=== PATIENT | female | born 1970 | race Caucasian/White ===

== ENCOUNTER 2017-08-08 09:30 | Emergency (ER) | payer BC ==
--- NOTE | 2017-08-08 09:45 | ERNOTE ---
Medical Problem HPI - General Chief Complaint: General Assessment Time Seen by Provider: 08/08/17 09:43 Source: patient, RN notes reviewed Exam Limitations: no limitations - Immun/Allergies/Home Medications Immunizations: IMMUNIZATION HX History of Influenza Vaccine Yes Allergies/Adverse Reactions: Allergies No Known Allergies Allergy (Unverified 08/08/17 09:41) Home Medications: HOME MEDICATIONS Cyanocobalamin (Vitamin B-12) [Vitamin B-12] 500 mcg PO DAILY 08/08/17 [Last Taken Unknown] Ergocalciferol (Vitamin D2) [Vitamin D2] 50,000 unit PO FR 08/08/17 [Last Taken Unknown] Escitalopram Oxalate [Lexapro] 10 mg PO DAILY 08/08/17 [Last Taken Unknown] Levothyroxine Sodium [Synthroid] 112 mcg PO DAILY 08/08/17 [Last Taken Unknown] Topiramate [Topiramate ER] 100 mg PO DAILY 08/08/17 [Last Taken Unknown] - History of Present History Narrative: Patient on Augmentin a couple of weeks ago, finished earlier this week. Started having diarrhea the day after she finished the Augmentin. She took one dose of Imodium, which worked but she did not repeat that medication and the diarrhea came back. Timing: intermittent Modifying Factors - (Improves): Present: medication Review of Systems - Review of Systems Constitutional: Present: recent illness. Absent: fever, chills, fatigue, malaise EYE: Present: no symptoms reported ENT: Absent: ear pain, sore throat Respiratory: Absent: shortness of breath, cough Cardiology: Absent: chest pain Gastrointestinal/Abdominal: Present: diarrhea. Absent: nausea, vomiting, abdominal pain Genitourinary: Absent: frequency, pain, dysuria Musculoskeletal: Absent: back pain, muscle pain Skin: Present: no symptoms reported Neurological: Present: no symptoms reported Endocrine: Present: no symptoms reported Hematologic/Lymphatic: Present: no symptoms reported Psych: Present: no symptoms reported - Patient's Past Medical History Patient History - Medical: Hypothyroidism Patient History - Cancer: No Hx of Cancer Patient History - Surgical Procedures: Cholecystectomy, , T & A Patient History - Other: None - Social History Living Situations: home Psych History: Psychiatric Hx Alcohol Use: none Drug Use: none - Immunizations History of Influenza Vaccine: Yes Physical Exam - Physical Exam General Appearance: Present: wd/wn, alert, no apparent distress Head Exam: Present: normal inspection, no evidence of injury Eye Exam: Normal inspection: bilateral, PERRL: bilateral, EOMI: bilateral Ears, Nose, Throat: Present: normal ENT inspection Neck: Present: normal inspection, nontender Respiratory: Present: no respiratory distress, normal breath sounds, no accessory muscle use, chest nontender, lungs clear Cardiovascular/Chest: Present: regular rate, rhythm, no murmur, normal peripheral pulses Gastrointestinal/Abdominal: Present: normal bowel sounds, nondistended, soft, tenderness - very mild left mid abdomen Back Exam: Present: normal inspection, normal range of motion Extremity Exam: Present: normal inspection, non-tender, normal range of motion, no edema Neurological Exam: Present: alert, oriented, normal mood/affect, no motor/ sensory deficits Skin Exam: Present: normal color, warm/dry Lymphatic Exam: Present: no adenopathy ED Progress - Results and Orders Patient's Lab Results:: I have reviewed the patient's lab results. Results and Orders: Laboratory Tests 08/08/17 08/08/17 08/08/17 09:54 09:54 10:00 WBC 7.3 RBC 5.00 Hgb 14.2 Hct 41.6 MCV 83.2 MCH 28.4 MCHC 34.1 RDW 13.0 Plt Count 251 MPV 8.8 Immature Gran % (Auto) 0.30 Immature Gran # (Auto) 0.02 Neutrophils % 70.3 Lymphocytes % 19.6 L Monocytes % 8.6 Eosinophils % 0.8 Basophils % 0.4 Nucleated RBC % 0.0 Neutrophils # 5.1 Lymphocytes # 1.4 L Monocytes # 0.6 Eosinophils # 0.1 Absolute Basophils 0.0 Sodium 140 Plasma Sodium 140 Potassium 3.4 Chloride 105 Carbon Dioxide 22.8 L Anion Gap 15.6 H BUN 8 Creatinine 0.92 Est GFR (Non-Af Amer) 70 BUN/Creatinine Ratio 8.7 L Random Glucose 93 Calcium 8.6 Calcium Adj for Albumin 8.7 Total Bilirubin 0.3 AST 10 ALT 15 L Alkaline Phosphatase 81 Total Protein 7.1 Albumin 3.5 Urine Color Yellow Urine Appearance Clear Urine pH 6.0 Ur Specific [place] 1.025 Urine Protein 15 H Urine Glucose (UA) Negative Urine Ketones Negative Urine Blood Negative Urine Nitrate Negative Urine Bilirubin 1 H Urine Ictotest Negative Prot Sulfosalicylic Acd Negative Urine Urobilinogen Normal Ur Leukocyte Esterase Negative Urine RBC None seen Urine WBC 0-5 Ur Epithelial Cells 0-5 Urine Bacteria 1+ H Urine Culture Comments No culture indicated Urine Opiates Screen Barbiturate Screen Ur Phencyclidine Scrn Urine Amphetamine U Benzodiazepines Scrn Urine Cocaine Screen Urine Marijuana (THC) 08/08/17 10:00 WBC RBC Hgb Hct MCV MCH MCHC RDW Plt Count MPV Immature Gran % (Auto) Immature Gran # (Auto) Neutrophils % Lymphocytes % Monocytes % Eosinophils % Basophils % Nucleated RBC % Neutrophils # Lymphocytes # Monocytes # Eosinophils # Absolute Basophils Sodium Plasma Sodium Potassium Chloride Carbon Dioxide Anion Gap BUN Creatinine Est GFR (Non-Af Amer) BUN/Creatinine Ratio Random Glucose Calcium Calcium Adj for Albumin Total Bilirubin AST ALT Alkaline Phosphatase Total Protein Albumin Urine Color Urine Appearance Urine pH Ur Specific [place] Urine Protein Urine Glucose (UA) Urine Ketones Urine Blood Urine Nitrate Urine Bilirubin Urine Ictotest Prot Sulfosalicylic Acd Urine Urobilinogen Ur Leukocyte Esterase Urine RBC Urine WBC Ur Epithelial Cells Urine Bacteria Urine Culture Comments Urine Opiates Screen Negative Barbiturate Screen Negative Ur Phencyclidine Scrn Negative Urine Amphetamine Negative U Benzodiazepines Scrn Negative Urine Cocaine Screen Negative Urine Marijuana (THC) Negative - Vital Signs Patient's Vital Signs:: I have reviewed the patient's vital signs. Vital Signs: Vital Signs 08/08/17 09:36 Temperature 36.3 C L Pulse Rate 94 Respiratory 12 Rate Blood Pressure 134/94 O2 Sat by Pulse 96 Oximetry - X-Ray X-Ray #1 X-Ray: abdomen Interpretation: Interp. by me X-ray Comments: No free air, no dilated loops of bowels, no air/fluid levels. - Progress/Reassessment Chief Complaint: General Assessment Progress:: Improved Departure Clinical Impression: Viral gastroenteritis, Mild dehydration - Departure Disposition: Home self-care Condition: Good Instructions: Viral Gastroenteritis, Adult, [id number], Food Choices to Help Relieve Diarrhea, Adult, Rehydration, Adult Referrals: Paola Leyva MD [Primary Care Provider] - (3-5 days)
[2017-08-08] MEDS ORDERED: NORMAL SALINE 1,000 ML IV ONE (09:53)
[2017-08-08 10:09] LABS: Urine Bilirubin 1 mg/dl (NEGATIVE); Urine Blood Negative /ul (NEGATIVE); Urine Ketone Negative (NEGATIVE); Urine Nitrite Negative (NEGATIVE); Urine Protein 15 mg/dL (NEGATIVE); Urine Specific Gravity 1.025 SP.GR. (1.005-1.010); Urine Urobilinogen Normal (NORMAL)
[2017-08-08 10:09] LABS: Hematocrit 41.6 % (37.0-47.0); Hemoglobin 14.2 gm/dL (12.5-16.0); Mean Cell Volume 83.2 fl (78-100); Mean Corpuscular Hemoglobin 28.4 pg (27-31); Mean Corpuscular Hgb Conc 34.1 g/dl (32-36); Mean Platelet Volume 8.8 fl (6.0-9.5); Neutrophil # 5.1 K/mm3 (1.3-6.0); Neutrophil % 70.3 % (42-75.0); Platelet Count 251 K/mm3 (150-450); White Blood Count 7.3 K/mm3 (4.0-10.5)
[2017-08-08 10:18] LABS: Urine Appearance Clear; Urine Bacteria 1+; Urine Color Yellow; Urine RBC None Seen /hpf (0-5); Urine WBC 0-5 /hpf (0-5)
[2017-08-08 10:27] LABS: Cocaine Ur Negative (NEGATIVE); Urine Barbiturate Negative (NEGATIVE); Urine Benzodiazepines Negative (NEGATIVE); Urine Opiates Negative (NEGATIVE); Urine PCP Negative (NEGATIVE); Urine THC Negative (NEGATIVE)
[2017-08-08 10:29] LABS: Albumin * 3.5 gm/dl (3.4-5.0); Anion Gap 15.6 mmol/L (6.8-13.8); BUN/Creatinine Ratio 8.7 (9.0-21.6); Bilirubin, Total 0.3 mg/dL (0.0-1.1); Ca. Corrected For Albumin 8.7 mg/dL (8.4-10.2); Calcium * 8.6 mg/dL (7.9-10.9); Carbon Dioxide 22.8 mmol/L (24-32.6); Potassium 3.4 mmol/L (3.4-4.6); Total Protein 7.1 gm/dL (6.2-8.2)
[2017-08-08 11:31] VITALS: BP 132/92
== END 2017-08-08 12:23 | disposition home or self-care (01) ==
LOC: ER 09:30
DX: A08.4 Viral intestinal infection, unspecified (principal); E86.0 Dehydration; E03.9 Hypothyroidism, unspecified